=== PATIENT | male | born 1990 | race Caucasian/White ===

== ENCOUNTER 2025-01-31 10:36 | Emergency (ER) | payer OTHER ==
[~2025-01-31] VITALS: Ht 185.4 cm; Wt 77.1 kg
[2025-01-31] MEDS ORDERED: TERBUTALINE SULFATE 1 MG/ML VIAL ONE ×2 (11:23→12:19)
[2025-01-31] MEDS: TERBUTALINE SULFATE 1 MG/ML VIAL SQ ONE ×2 (11:32→12:24)
[2025-01-31] MEDS: PHENYLEPHRINE 10 MG/ML VIAL IV ONE ×2 (12:00→13:02)
[2025-01-31] MEDS ORDERED: LIDOCAINE 1% INJ 50 ML MDV IJ ONE (13:57)
[2025-01-31 15:47] VITALS: BP 124/87; TEMP 97.9; O2SAT 99
== END 2025-01-31 15:48 | disposition home or self-care (01) ==
LOC: ER 10:47
DX: N48.30 Priapism, unspecified (principal); F15.10 Other stimulant abuse, uncomplicated
CPT/HCPCS: 99285; 96374; 96376; 96372 ×2; J3490; J3105 ×2; A6403